=== PATIENT | male | born 1950 | race Caucasian/White ===

== ENCOUNTER 2017-03-21 02:36 | Inpatient (IN) | payer BC ==
[2017-03-21] MEDS: DOXAZOSIN 4 MG TAB PO
[2017-03-21] MEDS ORDERED: NITROGLYCERIN 50 MG/D5W (PMX) 250 ML (02:43)
[2017-03-21 02:59] LABS: AADO2 Arterial 275.1 mmHg (7.0-24.0); Allen Test ACCEPTAB; Arterial Base Excess -7.6 mmol/L (-3.0-3); Arterial Blood Gas Oxygen Sat 99.5 mmHG (95.0-98.0); Arterial COHb 0.5 % (0.0-3.0); Arterial Fraction of Oxyhgb 98.7 % (93.0-99.0); Arterial HCO3 21.6 mmol/L (22.0-26.0); Arterial MetHb 0.3 % (0.0-1.5); Arterial Total Hemglobin 11.3 g/dl (12.0-18.0); Arterial pCO2 62.8 mmhg (35-45); Blood Gas IEPAP 15/5; Blood Gas PS 10; MODE MASK - BIPAP; Site Right Radial
[2017-03-21] MEDS ORDERED: NITROGLYCERIN 50 MG/D5W (PMX) 250 ML IV ×2 (03:00→15:30)
[2017-03-21 03:33] LABS: ADD MAN DIFF? NO
[2017-03-21 03:59] LABS: BASOPHIL # 0.1 10^3/ul (0.0-0.1); BASOPHILS % 0.6 % (0.0-2.0); EOSINOPHILS # 0.7 10^3/ul (0.0-0.5); EOSINOPHILS % 5.2 % (0.0-7.0); HEMATOCRIT 34.1 % (42.0-52.0); HEMOGLOBIN 10.1 g/dl (14.0-18.0); LYMPHOCYTES # 1.6 10^3/ul (0.8-2.9); LYMPHOCYTES % 12.1 % (15.0-51.0); MEAN CORPUSCULAR HEMOGLOBIN 27.6 pg (29.0-33.0); MEAN CORPUSCULAR HGB CONC 29.6 g/dl (32.0-37.0); MEAN CORPUSCULAR VOLUME 93.2 fl (82.0-101.0); MEAN PLATELET VOLUME 10.6 fl (7.4-10.4); MONOCYTE # 1.3 10^3/ul (0.3-0.9); MONOCYTES % 9.6 % (0.0-11.0); NEUTROPHIL # 9.7 10^3/ul (1.6-7.5); PLATELET COUNT 241 10^3/UL (140-415); RED BLOOD COUNT 3.66 10^6/ul (4.70-6.10); RED CELL DISTRIBUTION WIDTH 16.2 % (11.5-14.5)
[2017-03-21 03:59] LABS: WHITE BLOOD COUNT 13.4 10^3/ul (4.8-10.8)
[2017-03-21 04:14] LABS: ANION GAP 29 (8-16); BLOOD UREA NITROGEN 88 mg/dl (7-20); CALCIUM 10.5 mg/dl (8.4-10.2); CARBON DIOXIDE 23 mmol/L (21-31); CHLORIDE 105 mmol/L (97-110); CREATININE 13.17 mg/dl (0.61-1.24); GLUCOSE 122 mg/dl (70-220); POTASSIUM 5.8 mmol/L (3.5-5.1); SODIUM 151 mmol/L (135-144)
[2017-03-21 04:23] LABS: TROPONIN-I 0.025 ng/ml (0.00-0.12)
[2017-03-21 04:35] LABS: AADO2 Arterial 179.9 mmHg (7.0-24.0); Allen Test ACCEPTAB; Arterial Base Excess -5.4 mmol/L (-3.0-3); Arterial Blood Gas Oxygen Sat 98.1 mmHG (95.0-98.0); Arterial COHb 0 % (0.0-3.0); Arterial Fraction of Oxyhgb 97.9 % (93.0-99.0); Arterial HCO3 19.7 mmol/L (22.0-26.0); Arterial MetHb 0.2 % (0.0-1.5); Arterial Total Hemglobin 9.8 g/dl (12.0-18.0); Arterial pCO2 37.1 mmhg (35-45); Blood Gas IEPAP 15/5; Blood Gas PS 10; MODE HOOD; Site Right Radial
[2017-03-21] MEDS ORDERED: ONDANSETRON 4 MG INJ IV ×3 (06:00→15:00)
[2017-03-21] MEDS ORDERED: ACETAMINOPHEN 325 MG TAB PO ×2 (09:00→15:00)
[2017-03-21] MEDS ORDERED: BISACODYL (EC) 5 MG TAB PO ×2 (09:00→15:00)
[2017-03-21] MEDS ORDERED: NACL 0.9% 3 ML SYG IV (09:00)
[2017-03-21] MEDS ORDERED: DOCUSATE SODIUM 100 MG CAP PO ×2 (09:00→15:00)
[2017-03-21] MEDS: LEVOFLOXACIN 500MG/D5W (PMX) 100 ML IV (12:00)
[2017-03-21] MEDS ORDERED: VANCOMYCIN IV PER PHARMACY XX (12:00)
[2017-03-21 13:48] LABS: LACTIC ACID 4.4 mmol/L (0.5-2.0)
[2017-03-21] MEDS: ACETAMINOPHEN 325 MG TAB PO (13:53)
[2017-03-21] MEDS: AZTREONAM 2 GM in SOD CHLORIDE 0.9% 100 ML IVPB (14:00)
[2017-03-21] MEDS ORDERED: AZTREONAM 2 GM in SOD CHLORIDE 0.9% 100 ML IVPB (14:00)
[2017-03-21] MEDS: CIPROFLOXACIN 400MG/D5W 200 ML IVPB (14:00)
[2017-03-21] MEDS: CEFEPIME 2GM/50 ML (PMX) 50 ML IVPB (14:00)
[2017-03-21] MEDS: morphine 2 MG INJ IV ×2 (14:46→19:40)
[2017-03-21] MEDS ORDERED: ZOLPIDEM 5 MG TAB PO (15:00)
[2017-03-21] MEDS ORDERED: LORAZEPAM 0.5 MG TAB PO (15:00)
[2017-03-21] MEDS ORDERED: METOCLOPRAMIDE 10 MG INJ IV (15:00)
[2017-03-21] MEDS: AZITHROMYCIN 500MG/NS (PMX) 250 ML IV (15:22)
[2017-03-21] MEDS: ASPIRIN (EC) 81 MG TAB PO (15:28)
[2017-03-21] MEDS: NICOTINE (14 MG/24 HR) PATCH TRANSDERM (15:29)
[2017-03-21 15:35] LABS: ANION GAP 24 (8-16); BLOOD UREA NITROGEN 85 mg/dl (7-20); CALCIUM 9.3 mg/dl (8.4-10.2); CARBON DIOXIDE 22 mmol/L (21-31); CHLORIDE 103 mmol/L (97-110); CREATINE KINASE 25 IU/L (23-200); CREATININE 11.62 mg/dl (0.61-1.24); GLUCOSE 130 mg/dl (70-220); POTASSIUM 4.6 mmol/L (3.5-5.1); SODIUM 144 mmol/L (135-144)
[2017-03-21 15:50] LABS: CK INDEX 3.6
[2017-03-21 16:04] LABS: TROPONIN-I 0.138 ng/ml (0.00-0.12)
[2017-03-21] MEDS: ALBUTEROL/IPRATROPIUM (NEB) 3 ML AMP HHN ×2 (17:15→20:11)
[2017-03-21] MEDS: OXYCODONE/ACETAMINOPHEN (5/325) TAB PO (18:10)
[2017-03-21] MEDS: CEFTRIAXONE 1 GM/50 ML (PMX) 50 ML IVPB (19:00)
[2017-03-21 19:34] LABS: ANION GAP 20 (8-16); BLOOD UREA NITROGEN 64 mg/dl (7-20); CALCIUM 9.7 mg/dl (8.4-10.2); CARBON DIOXIDE 30 mmol/L (21-31); CHLORIDE 95 mmol/L (97-110); CREATININE 8.89 mg/dl (0.61-1.24); GLUCOSE 118 mg/dl (70-220); POTASSIUM 3.8 mmol/L (3.5-5.1); SODIUM 141 mmol/L (135-144)
[2017-03-21] MEDS: VALSARTAN 160 MG TAB PO (20:40)
[2017-03-21] MEDS: ATORVASTATIN 10 MG TAB PO (20:41)
[2017-03-21] MEDS: FAMOTIDINE 20 MG TAB PO (20:41)
[2017-03-21 21:18] LABS: CREATINE KINASE 21 IU/L (23-200)
[2017-03-21 21:31] LABS: CK INDEX 4.2; TROPONIN-I 0.101 ng/ml (0.00-0.12)
[2017-03-21 21:43] LABS: CK-MB 0.88 ng/ml (0.0-2.4)
[2017-03-22] MEDS: ALBUTEROL/IPRATROPIUM (NEB) 3 ML AMP HHN ×6 (01:00→21:30)
[2017-03-22] MEDS: PANTOPRAZOLE (EC) 40 MG TAB PO (05:36)
[2017-03-22] MEDS: VALSARTAN 160 MG TAB PO ×2 (08:19→21:23)
[2017-03-22] MEDS: MULTIVIT/CA CARB/B CMPLX/FA TAB PO (08:19)
[2017-03-22] MEDS: ASPIRIN (EC) 81 MG TAB PO (08:19)
[2017-03-22] MEDS: NICOTINE (14 MG/24 HR) PATCH TRANSDERM (08:19)
[2017-03-22 08:20] LABS: ADD MAN DIFF? NO
[2017-03-22 08:26] LABS: BASOPHILS % 0.5 % (0.0-2.0); EOSINOPHILS # 0.3 10^3/ul (0.0-0.5); EOSINOPHILS % 8.2 % (0.0-7.0); HEMATOCRIT 28.6 % (42.0-52.0); HEMOGLOBIN 8.5 g/dl (14.0-18.0); LYMPHOCYTES # 0.6 10^3/ul (0.8-2.9); MEAN CORPUSCULAR HEMOGLOBIN 26.9 pg (29.0-33.0); MEAN CORPUSCULAR HGB CONC 29.7 g/dl (32.0-37.0); MEAN CORPUSCULAR VOLUME 90.5 fl (82.0-101.0); MEAN PLATELET VOLUME 10.2 fl (7.4-10.4); MONOCYTE # 0.7 10^3/ul (0.3-0.9); MONOCYTES % 17.6 % (0.0-11.0); NEUTROPHIL # 2.2 10^3/ul (1.6-7.5); NEUTROPHILS % 57.4 % (39.0-77.0); PLATELET COUNT 147 10^3/UL (140-415); RED BLOOD COUNT 3.16 10^6/ul (4.70-6.10); RED CELL DISTRIBUTION WIDTH 16.2 % (11.5-14.5)
[2017-03-22 08:26] LABS: WHITE BLOOD COUNT 3.8 10^3/ul (4.8-10.8)
[2017-03-22 09:09] LABS: ALANINE AMINOTRANSFERASE 31 IU/L (13-69); ALBUMIN 3.6 g/dl (3.3-4.9); ALBUMIN/GLOBULIN RATIO 1.28; ALKALINE PHOSPHATASE 134 IU/L (42-121); ANION GAP 21 (8-16); ASPARTATE AMINO TRANSFERASE 15 IU/L (15-46); BLOOD UREA NITROGEN 71 mg/dl (7-20); CALCIUM 10.1 mg/dl (8.4-10.2); CARBON DIOXIDE 28 mmol/L (21-31); CHLORIDE 98 mmol/L (97-110); CHOL/HDL RATIO 4.6 RATIO; CHOLESTEROL 126 mg/dl (100-200); CREATININE 10.24 mg/dl (0.61-1.24); GLUCOSE 88 mg/dl (70-220); HDL CHOLESTEROL 27 mg/dl (30-78); LDL CHOLESTEROL,CALCULATED 70 mg/dl; MAGNESIUM 2.1 mg/dl (1.7-2.5); POTASSIUM 4.6 mmol/L (3.5-5.1); SODIUM 142 mmol/L (135-144); TOTAL PROTEIN 6.4 g/dl (6.1-8.1); TRIGLYCERIDES 144 mg/dl (0-149)
[2017-03-22] MEDS: CALCIUM ACETATE 667 MG CAP PO ×2 (12:22→17:41)
[2017-03-22] MEDS: AZITHROMYCIN 500MG/NS (PMX) 250 ML IV (12:57)
[2017-03-22] MEDS: CEFTRIAXONE 1 GM/50 ML (PMX) 50 ML IVPB (16:11)
[2017-03-22] MEDS: morphine 2 MG INJ IV (16:16)
[2017-03-22] MEDS: hydrALAzine 20 MG INJ IV (17:41)
[2017-03-22] MEDS: ATORVASTATIN 10 MG TAB PO (21:22)
[2017-03-22] MEDS: DOXAZOSIN 4 MG TAB PO (21:23)
[2017-03-22] MEDS: FAMOTIDINE 20 MG TAB PO (21:23)
[2017-03-23] MEDS: ALBUTEROL/IPRATROPIUM (NEB) 3 ML AMP HHN ×5 (01:00→20:09)
[2017-03-23] MEDS: PANTOPRAZOLE (EC) 40 MG TAB PO (05:32)
[2017-03-23 07:58] LABS: CREATINE KINASE < 20 IU/L (23-200)
[2017-03-23 08:10] LABS: CK-MB 0.59 ng/ml (0.0-2.4); TROPONIN-I 0.047 ng/ml (0.00-0.12)
[2017-03-23 08:12] LABS: ANION GAP 23 (8-16); BLOOD UREA NITROGEN 63 mg/dl (7-20); CALCIUM 10.2 mg/dl (8.4-10.2); CARBON DIOXIDE 25 mmol/L (21-31); CHLORIDE 101 mmol/L (97-110); CREATININE 8.69 mg/dl (0.61-1.24); GLUCOSE 93 mg/dl (70-220); POTASSIUM 4.8 mmol/L (3.5-5.1); SODIUM 144 mmol/L (135-144)
[2017-03-23] MEDS: CALCIUM ACETATE 667 MG CAP PO ×3 (08:51→18:28)
[2017-03-23] MEDS: MULTIVIT/CA CARB/B CMPLX/FA TAB PO (08:51)
[2017-03-23] MEDS: ASPIRIN (EC) 81 MG TAB PO (08:52)
[2017-03-23] MEDS: VALSARTAN 160 MG TAB PO ×2 (08:52→22:50)
[2017-03-23] MEDS: NICOTINE (14 MG/24 HR) PATCH TRANSDERM (08:53)
[2017-03-23] MEDS: REGADENOSON 0.4 MG/5 ML SYG (10:57)
[2017-03-23] MEDS: AZITHROMYCIN 500MG/NS (PMX) 250 ML IV (14:29)
[2017-03-23] MEDS: CEFTRIAXONE 1 GM/50 ML (PMX) 50 ML IVPB (18:28)
[2017-03-23] MEDS: DOXAZOSIN 4 MG TAB PO (21:00)
[2017-03-23] MEDS: ATORVASTATIN 10 MG TAB PO (22:50)
[2017-03-23] MEDS: FAMOTIDINE 20 MG TAB PO (22:50)
[2017-03-24] MEDS: ALBUTEROL/IPRATROPIUM (NEB) 3 ML AMP HHN ×5 (01:00→17:43)
[2017-03-24] MEDS: VALSARTAN 160 MG TAB PO (04:46)
[2017-03-24] MEDS: PANTOPRAZOLE (EC) 40 MG TAB PO (06:00)
[2017-03-24] MEDS: MULTIVIT/CA CARB/B CMPLX/FA TAB PO (10:27)
[2017-03-24] MEDS: ASPIRIN (EC) 81 MG TAB PO (10:27)
[2017-03-24] MEDS: NICOTINE (14 MG/24 HR) PATCH TRANSDERM (10:28)
[2017-03-24] MEDS: CALCIUM ACETATE 667 MG CAP PO ×3 (10:28→18:05)
[2017-03-24] MEDS: AZITHROMYCIN 500MG/NS (PMX) 250 ML IV (12:38)
[2017-03-24] MEDS: HYDROCODONE/APAP (5/325) TAB PO (14:18)
[2017-03-24] MEDS: CEFTRIAXONE 1 GM/50 ML (PMX) 50 ML IVPB (14:20)
[2017-03-24] MEDS: OXYCODONE/ACETAMINOPHEN (5/325) TAB PO (15:59)
== END 2017-03-24 18:38 | disposition home or self-care (01) | DRG 193 ==
LOC: E/R 02:36 → MS4 05:55
PROC: 5A09357 Assistance with Respiratory Ventilation, Less than 24 Consecutive Hours, Continuous Positive Airway Pressure (ICD-10-PCS; principal; 2017-03-21)
PROC: 4A133R1 Monitoring of Arterial Saturation, Peripheral, Percutaneous Approach (ICD-10-PCS; 2017-03-21)
PROC: 5A1D70Z Performance of Urinary Filtration, Intermittent, Less than 6 Hours Per Day (ICD-10-PCS; 2017-03-22)
DX: J18.9 Pneumonia, unspecified organism (principal); I50.23 Acute on chronic systolic (congestive) heart failure; E87.0 Hyperosmolality and hypernatremia; N18.6 End stage renal disease; I42.9 Cardiomyopathy, unspecified; J44.0 Chronic obstructive pulmonary disease with (acute) lower respiratory infection; I13.2 Hypertensive heart and chronic kidney disease with heart failure and with stage 5 chronic kidney disease, or end stage renal disease; E87.2 Acidosis; I16.1 Hypertensive emergency; Z99.2 Dependence on renal dialysis; E87.5 Hyperkalemia; E78.00 Pure hypercholesterolemia, unspecified; F17.210 Nicotine dependence, cigarettes, uncomplicated; Z91.15 Patient's noncompliance with renal dialysis; R74.8 Abnormal levels of other serum enzymes; D63.1 Anemia in chronic kidney disease
CPT/HCPCS: 36415; 36600; 71010; 78452; 80048; 80053; 80061; 82550; 82553; 82803; 82962; 83605; 83735; 84100; 84443; 84484; 85025; 87040; 87400; 90935; 93005; 93017; 93306; 94640; 94660; 96365; 96366; 96375; 99291-25

== ENCOUNTER 2017-06-10 15:41 | Inpatient (IN) | payer BC ==
[2017-06-10] MEDS: SOD CHLORIDE 0.9% 500 ML IV (19:46)
[2017-06-10] MEDS: ONDANSETRON 4 MG INJ IV (19:46)
[2017-06-10 20:03] LABS: ADD MAN DIFF? NO
[2017-06-10 20:06] LABS: WHITE BLOOD COUNT 5.4 10^3/ul (4.8-10.8)
[2017-06-10 20:06] LABS: BASOPHILS % 0.6 % (0.0-2.0); EOSINOPHILS # 0.2 10^3/ul (0.0-0.5); EOSINOPHILS % 2.8 % (0.0-7.0); HEMATOCRIT 29.9 % (42.0-52.0); HEMOGLOBIN 9.5 g/dl (14.0-18.0); LYMPHOCYTES # 0.7 10^3/ul (0.8-2.9); LYMPHOCYTES % 13.5 % (15.0-51.0); MEAN CORPUSCULAR HEMOGLOBIN 26.6 pg (29.0-33.0); MEAN CORPUSCULAR HGB CONC 31.8 g/dl (32.0-37.0); MEAN CORPUSCULAR VOLUME 83.8 fl (82.0-101.0); MEAN PLATELET VOLUME 9.8 fl (7.4-10.4); MONOCYTE # 0.7 10^3/ul (0.3-0.9); MONOCYTES % 12.4 % (0.0-11.0); NEUTROPHIL # 3.8 10^3/ul (1.6-7.5); NEUTROPHILS % 70.3 % (39.0-77.0); PLATELET COUNT 211 10^3/UL (140-415); RED BLOOD COUNT 3.57 10^6/ul (4.70-6.10); RED CELL DISTRIBUTION WIDTH 15.5 % (11.5-14.5)
[2017-06-10 20:35] LABS: ALANINE AMINOTRANSFERASE 15 IU/L (13-69); ALBUMIN 4.1 g/dl (3.3-4.9); ALBUMIN/GLOBULIN RATIO 1.46; ALKALINE PHOSPHATASE 161 IU/L (42-121); ANION GAP 23 (8-16); ASPARTATE AMINO TRANSFERASE 10 IU/L (15-46); BLOOD UREA NITROGEN 66 mg/dl (7-20); CARBON DIOXIDE 25 mmol/L (21-31); CHLORIDE 103 mmol/L (97-110); CREATININE 9.38 mg/dl (0.61-1.24); GLUCOSE 103 mg/dl (70-220); POTASSIUM 3.7 mmol/L (3.5-5.1); SODIUM 147 mmol/L (135-144); TOTAL PROTEIN 6.9 g/dl (6.1-8.1)
[2017-06-10 20:39] LABS: LACTIC ACID 1.6 mmol/L (0.5-2.0)
[2017-06-10 20:46] LABS: TROPONIN-I < 0.012 ng/ml (0.00-0.12)
[2017-06-10] MEDS ORDERED: LABETALOL HCL 20MG INJ IV (22:00)
[2017-06-10] MEDS: LABETALOL HCL 20MG INJ IV (22:02)
[2017-06-10 22:56] LABS: ADD UMIC YES; UR ASCORBIC ACID NEGATIVE (NEGATIVE); UR BILIRUBIN (Dip) NEGATIVE (NEGATIVE); UR BLOOD (Dip) NEGATIVE (NEGATIVE); UR CLARITY CLEAR (CLEAR); UR COLOR STRAW (YELLOW); UR GLUCOSE (Dip) 2+ mg/dL (NEGATIVE); UR KETONES (Dip) NEGATIVE (NEGATIVE); UR LEUKOCYTE ESTERASE (Dip) NEGATIVE Leu/ul (NEGATIVE); UR NITRITE (Dip) NEGATIVE (NEGATIVE); UR RBC 3 /HPF (0-5); UR SPECIFIC GRAVITY (Dip) 1.007 (1.003-1.030); UR TOTAL PROTEIN (Dip) 3+ mg/dl (NEGATIVE); UR UROBILINOGEN (Dip) NEGATIVE (NEGATIVE); UR WBC 4 /HPF (0-5)
[2017-06-10] MEDS: hydrALAzine 20 MG INJ IV (22:56)
[2017-06-10] MEDS: LIDOCAINE/MYLANTA 40 ML BTL PO (23:41)
[2017-06-11] MEDS ORDERED: DOCUSATE SODIUM 100 MG CAP PO
[2017-06-11] MEDS ORDERED: BISACODYL (EC) 5 MG TAB PO
[2017-06-11] MEDS ORDERED: ONDANSETRON 4 MG INJ IV
[2017-06-11] MEDS ORDERED: SEVELAMER CARBONATE 0.8 GM PKT PO (00:30)
[2017-06-11] MEDS: NIFEdipine (XL) 90 MG TAB PO ×2 (00:39→09:35)
[2017-06-11] MEDS: VALSARTAN 160 MG TAB PO ×3 (00:39→20:28)
[2017-06-11] MEDS: ASPIRIN 81 MG TAB PO ×2 (00:51→09:31)
[2017-06-11] MEDS: ZOLPIDEM 5 MG TAB PO (00:51)
[2017-06-11 00:54] LABS: CREATINE KINASE 27 IU/L (23-200)
[2017-06-11 01:06] LABS: TROPONIN-I 0.028 ng/ml (0.00-0.12)
[2017-06-11 01:18] LABS: CK-MB 0.82 ng/ml (0.0-2.4)
[2017-06-11 02:01] LABS: AMPHETAMINE/METHAMPHETAMINE Negative (NEGATIVE); BARBITURATES Negative (NEGATIVE); BENZODIAZEPINES Negative (NEGATIVE); CANNABINOIDS Negative (NEGATIVE); COCAINE Negative (NEGATIVE); OPIATES Negative (NEGATIVE)
[2017-06-11] MEDS: LORAZEPAM 0.5 MG TAB PO ×2 (03:30→17:00)
[2017-06-11] MEDS: morphine 2 MG INJ IV ×2 (06:38→20:26)
[2017-06-11 07:33] LABS: ADD MAN DIFF? NO
[2017-06-11] MEDS: CALCIUM ACETATE 667 MG CAP PO ×3 (07:43→16:56)
[2017-06-11 07:47] LABS: WHITE BLOOD COUNT 5.1 10^3/ul (4.8-10.8)
[2017-06-11 07:47] LABS: BASOPHILS % 0.4 % (0.0-2.0); EOSINOPHILS # 0.2 10^3/ul (0.0-0.5); EOSINOPHILS % 3.2 % (0.0-7.0); HEMATOCRIT 28.3 % (42.0-52.0); HEMOGLOBIN 8.8 g/dl (14.0-18.0); LYMPHOCYTES # 0.7 10^3/ul (0.8-2.9); LYMPHOCYTES % 14.2 % (15.0-51.0); MEAN CORPUSCULAR HEMOGLOBIN 26.2 pg (29.0-33.0); MEAN CORPUSCULAR HGB CONC 31.1 g/dl (32.0-37.0); MEAN CORPUSCULAR VOLUME 84.2 fl (82.0-101.0); MEAN PLATELET VOLUME 10.8 fl (7.4-10.4); MONOCYTE # 0.6 10^3/ul (0.3-0.9); MONOCYTES % 11.8 % (0.0-11.0); NEUTROPHIL # 3.6 10^3/ul (1.6-7.5); NEUTROPHILS % 70.2 % (39.0-77.0); PLATELET COUNT 194 10^3/UL (140-415); RED BLOOD COUNT 3.36 10^6/ul (4.70-6.10); RED CELL DISTRIBUTION WIDTH 15.7 % (11.5-14.5)
[2017-06-11 07:59] LABS: CREATINE KINASE 47 IU/L (23-200)
[2017-06-11 08:02] LABS: ALANINE AMINOTRANSFERASE 16 IU/L (13-69); ALBUMIN 3.7 g/dl (3.3-4.9); ALKALINE PHOSPHATASE 140 IU/L (42-121); ANION GAP 25 (8-16); ASPARTATE AMINO TRANSFERASE 12 IU/L (15-46); BLOOD UREA NITROGEN 73 mg/dl (7-20); CALCIUM 10.2 mg/dl (8.4-10.2); CARBON DIOXIDE 22 mmol/L (21-31); CHLORIDE 104 mmol/L (97-110); CREATININE 9.83 mg/dl (0.61-1.24); GLUCOSE 101 mg/dl (70-220); MAGNESIUM 2.4 mg/dl (1.7-2.5); POTASSIUM 4.5 mmol/L (3.5-5.1); SODIUM 146 mmol/L (135-144)
[2017-06-11 08:12] LABS: CK INDEX 5.7
[2017-06-11 08:32] LABS: THYROID STIMULATING HORMONE 0.655 MIU/L (0.465-4.680)
[2017-06-11 08:37] LABS: CK-MB 2.66 ng/ml (0.0-2.4)
[2017-06-11] MEDS ORDERED: NIFEdipine (XL) 90 MG TAB PO (09:00)
[2017-06-11] MEDS: MINOXIDIL 2.5 MG TAB PO (09:31)
[2017-06-11] MEDS: CALCIUM CARBONATE 500 MG CHEW TAB PO ×4 (09:32→20:28)
[2017-06-11] MEDS: FAMOTIDINE 20 MG TAB PO (09:38)
[2017-06-11] MEDS: DIPHENHYDRAMINE 50 MG INJ IM (10:51)
[2017-06-11] MEDS: CLOPIDOGREL 75 MG TAB PO (10:52)
[2017-06-11] MEDS: ISOSORBIDE DINITRATE 20 MG TAB PO ×2 (12:40→20:28)
[2017-06-11] MEDS: HEPARIN 5,000 UNIT/0.5 ML VIAL SC ×2 (14:59→21:53)
[2017-06-11 16:20] LABS: CREATINE KINASE 199 IU/L (23-200)
[2017-06-11 16:32] LABS: CK INDEX 1.8
[2017-06-11 16:33] LABS: CK-MB 3.67 ng/ml (0.0-2.4)
[2017-06-11] MEDS: EPOETIN 10000 UNITS/1 ML INJ (ESRD) SC (16:51)
[2017-06-11 20:19] LABS: HEPATITIS B SURFACE ANTIGEN NEGATIVE (NEGATIVE)
[2017-06-11] MEDS: DOXAZOSIN 4 MG TAB PO (20:27)
[2017-06-11] MEDS: ATORVASTATIN 10 MG TAB PO (20:28)
[2017-06-12] MEDS: HYDROCODONE/APAP (5/325) TAB PO ×2 (00:10→15:50)
[2017-06-12] MEDS: ISOSORBIDE DINITRATE 20 MG TAB PO (02:29)
[2017-06-12] MEDS: VALSARTAN 160 MG TAB PO (02:29)
[2017-06-12] MEDS: DOXAZOSIN 4 MG TAB PO (02:30)
[2017-06-12] MEDS: ATORVASTATIN 10 MG TAB PO (02:30)
[2017-06-12] MEDS: HEPARIN 5,000 UNIT/0.5 ML VIAL SC ×4 (06:00→21:25)
[2017-06-12 07:45] LABS: ADD MAN DIFF? NO
[2017-06-12 07:55] LABS: ABNORMAL IP MESSAGE 1; BASOPHILS % 0.5 % (0.0-2.0); EOSINOPHILS # 0.1 10^3/ul (0.0-0.5); EOSINOPHILS % 2.7 % (0.0-7.0); HEMATOCRIT 23.9 % (42.0-52.0); HEMOGLOBIN 7.6 g/dl (14.0-18.0); LYMPHOCYTES # 0.5 10^3/ul (0.8-2.9); LYMPHOCYTES % 11.9 % (15.0-51.0); MEAN CORPUSCULAR HEMOGLOBIN 26.3 pg (29.0-33.0); MEAN CORPUSCULAR HGB CONC 31.8 g/dl (32.0-37.0); MEAN CORPUSCULAR VOLUME 82.7 fl (82.0-101.0); MEAN PLATELET VOLUME 10.7 fl (7.4-10.4); MONOCYTE # 0.4 10^3/ul (0.3-0.9); MONOCYTES % 9.5 % (0.0-11.0); NEUTROPHIL # 3.1 10^3/ul (1.6-7.5); NEUTROPHILS % 75.2 % (39.0-77.0); PLATELET COUNT 164 10^3/UL (140-415); POSITIVE DIFF @See below; RED BLOOD COUNT 2.89 10^6/ul (4.70-6.10); RED CELL DISTRIBUTION WIDTH 15.9 % (11.5-14.5)
[2017-06-12 07:55] LABS: WHITE BLOOD COUNT 4.1 10^3/ul (4.8-10.8)
[2017-06-12 08:09] LABS: CREATINE KINASE 93 IU/L (23-200)
[2017-06-12 08:10] LABS: IRON 51 ug/dl (35-150)
[2017-06-12 08:12] LABS: INR 1.35; PROTIME 16.9 Sec (11.9-14.9); PT RATIO 1.3
[2017-06-12 08:17] LABS: ALANINE AMINOTRANSFERASE 20 IU/L (13-69); ALBUMIN 3.5 g/dl (3.3-4.9); ALBUMIN/GLOBULIN RATIO 1.25; ALKALINE PHOSPHATASE 134 IU/L (42-121); ANION GAP 19 (8-16); ASPARTATE AMINO TRANSFERASE 14 IU/L (15-46); BLOOD UREA NITROGEN 43 mg/dl (7-20); CALCIUM 9.5 mg/dl (8.4-10.2); CARBON DIOXIDE 25 mmol/L (21-31); CHLORIDE 99 mmol/L (97-110); CHOL/HDL RATIO 2.9 RATIO; CHOLESTEROL 82 mg/dl (100-200); CREATININE 6.78 mg/dl (0.61-1.24); GLUCOSE 85 mg/dl (70-220); HDL CHOLESTEROL 28 mg/dl (30-78); LDL CHOLESTEROL,CALCULATED 25 mg/dl; MAGNESIUM 2.1 mg/dl (1.7-2.5); POTASSIUM 4.1 mmol/L (3.5-5.1); SODIUM 139 mmol/L (135-144); TOTAL PROTEIN 6.3 g/dl (6.1-8.1); TRIGLYCERIDES 144 mg/dl (0-149)
[2017-06-12 08:18] LABS: CK INDEX 1.5
[2017-06-12 08:19] LABS: % IRON SATURATION 24 % SAT (22-52); CK-MB 1.35 ng/ml (0.0-2.4); TOTAL IRON BINDING CAPACITY 216 ug/dl (241-421)
[2017-06-12 08:27] LABS: FREE T4 (FREE THYROXINE) 1.07 ng/dl (0.78-2.44)
[2017-06-12] MEDS ORDERED: LABETALOL HCL 20MG INJ IV (08:30)
[2017-06-12 08:40] LABS: PHOSPHORUS 4.9 mg/dl (2.5-4.9)
[2017-06-12 09:03] LABS: THYROID STIMULATING HORMONE 0.926 MIU/L (0.465-4.680)
[2017-06-12] MEDS: ASPIRIN 81 MG TAB PO (09:05)
[2017-06-12] MEDS: FAMOTIDINE 20 MG TAB PO (09:06)
[2017-06-12] MEDS: NIFEdipine (XL) 90 MG TAB PO (09:06)
[2017-06-12] MEDS: CALCIUM ACETATE 667 MG CAP PO ×3 (09:06→17:50)
[2017-06-12] MEDS: MINOXIDIL 2.5 MG TAB PO (09:07)
[2017-06-12] MEDS: morphine 2 MG INJ IV (12:07)
[2017-06-12 13:26] LABS: IMMEDIATE SPIN CROSSMATCH 1 2
[2017-06-12] MEDS: CALCIUM CARBONATE 500 MG CHEW TAB PO ×4 (15:50→21:12)
[2017-06-12] MEDS ORDERED: NICOTINE POLACRILEX 2 MG GUM BUCCAL (20:30)
[2017-06-12] MEDS: NICOTINE (21 MG/24 HR) PATCH TRANSDERM (21:12)
[2017-06-13] MEDS: HEPARIN 5,000 UNIT/0.5 ML VIAL SC ×2 (05:56→13:26)
[2017-06-13 07:27] LABS: ADD MAN DIFF? NO
[2017-06-13 07:41] LABS: ABNORMAL IP MESSAGE 1; BASOPHILS % 0.2 % (0.0-2.0); EOSINOPHILS # 0.1 10^3/ul (0.0-0.5); EOSINOPHILS % 2.4 % (0.0-7.0); HEMATOCRIT 34.8 % (42.0-52.0); HEMOGLOBIN 11.1 g/dl (14.0-18.0); LYMPHOCYTES # 0.5 10^3/ul (0.8-2.9); LYMPHOCYTES % 11.1 % (15.0-51.0); MEAN CORPUSCULAR HEMOGLOBIN 26.9 pg (29.0-33.0); MEAN CORPUSCULAR HGB CONC 31.9 g/dl (32.0-37.0); MEAN CORPUSCULAR VOLUME 84.5 fl (82.0-101.0); MEAN PLATELET VOLUME 10.2 fl (7.4-10.4); MONOCYTE # 0.5 10^3/ul (0.3-0.9); MONOCYTES % 11.8 % (0.0-11.0); NEUTROPHIL # 3.4 10^3/ul (1.6-7.5); NEUTROPHILS % 74.3 % (39.0-77.0); PLATELET COUNT 177 10^3/UL (140-415); POSITIVE DIFF @See below; RED BLOOD COUNT 4.12 10^6/ul (4.70-6.10); RED CELL DISTRIBUTION WIDTH 14.9 % (11.5-14.5)
[2017-06-13 07:41] LABS: WHITE BLOOD COUNT 4.5 10^3/ul (4.8-10.8)
[2017-06-13] MEDS: CALCIUM ACETATE 667 MG CAP PO ×3 (07:55→16:55)
[2017-06-13 07:59] LABS: INR 1.25; PROTIME 15.9 Sec (11.9-14.9); PT RATIO 1.2
[2017-06-13] MEDS: VALSARTAN 160 MG TAB PO ×2 (08:00→21:49)
[2017-06-13] MEDS: CALCIUM CARBONATE 500 MG CHEW TAB PO ×4 (08:01→21:49)
[2017-06-13] MEDS: ISOSORBIDE DINITRATE 20 MG TAB PO ×3 (08:01→21:59)
[2017-06-13] MEDS: MINOXIDIL 2.5 MG TAB PO (08:01)
[2017-06-13] MEDS: FAMOTIDINE 20 MG TAB PO (08:01)
[2017-06-13] MEDS: NIFEdipine (XL) 90 MG TAB PO (08:01)
[2017-06-13 08:03] LABS: CREATINE KINASE 74 IU/L (23-200)
[2017-06-13 08:14] LABS: CK INDEX 0.8
[2017-06-13 08:15] LABS: TROPONIN-I 0.852 ng/ml (0.00-0.12)
[2017-06-13 08:44] LABS: IRON 43 ug/dl (35-150)
[2017-06-13 09:00] LABS: % IRON SATURATION 19 % SAT (22-52); TOTAL IRON BINDING CAPACITY 223 ug/dl (241-421)
[2017-06-13] MEDS: NICOTINE (21 MG/24 HR) PATCH TRANSDERM (09:21)
[2017-06-13] MEDS: ASPIRIN 81 MG TAB PO (09:21)
[2017-06-13 10:26] LABS: ALANINE AMINOTRANSFERASE 19 IU/L (13-69); ALBUMIN 4.1 g/dl (3.3-4.9); ALBUMIN/GLOBULIN RATIO 1.51; ALKALINE PHOSPHATASE 154 IU/L (42-121); ANION GAP 20 (8-16); ASPARTATE AMINO TRANSFERASE 18 IU/L (15-46); BLOOD UREA NITROGEN 37 mg/dl (7-20); CARBON DIOXIDE 26 mmol/L (21-31); CHLORIDE 99 mmol/L (97-110); CREATININE 6.11 mg/dl (0.61-1.24); GLUCOSE 89 mg/dl (70-220); MAGNESIUM 2.1 mg/dl (1.7-2.5); POTASSIUM 3.7 mmol/L (3.5-5.1); SODIUM 141 mmol/L (135-144); TOTAL PROTEIN 6.8 g/dl (6.1-8.1)
[2017-06-13] MEDS: EPOETIN 10000 UNITS/1 ML INJ (ESRD) SC (16:49)
[2017-06-13] MEDS ORDERED: FENTAnyl 50 MCG/ML VIAL (17:02)
[2017-06-13] MEDS ORDERED: MIDAZOLAM 1 MG/ML 2 ML INJ (17:02)
[2017-06-13] MEDS ORDERED: HEPARIN 1000 UNITS/NS (A-LINE) 1,000 ML (17:26)
[2017-06-13] MEDS ORDERED: IODIXANOL LOCM 100 ML BTL ×3 (17:26→18:35)
[2017-06-13] MEDS ORDERED: IOHEXOL 350MG/ML 50 ML BTL (17:26)
[2017-06-13] MEDS ORDERED: BIVALIRUDIN 250MG /NS 50 ML 50 ML IVPB (17:26)
[2017-06-13] MEDS ORDERED: CLOPIDOGREL 300 MG TAB (17:28)
[2017-06-13] MEDS ORDERED: VERAPAMIL 5 MG INJ (17:47)
[2017-06-13] MEDS ORDERED: NITROGLYCERIN (IC) 100 MCG/ML INJ (17:47)
[2017-06-13] MEDS: SOD CHLORIDE 0.9% 1,000 ML IV (18:40)
[2017-06-13] MEDS ORDERED: morphine 2 MG INJ IV (19:00)
[2017-06-13] MEDS ORDERED: OXYCODONE/ACETAMINOPHEN (5/325) TAB PO ×2 (19:00)
[2017-06-13] MEDS ORDERED: ACETAMINOPHEN 325 MG TAB PO (19:00)
[2017-06-13] MEDS: ATORVASTATIN 10 MG TAB PO (21:49)
[2017-06-13] MEDS: ACETAMINOPHEN 325 MG TAB PO (21:50)
[2017-06-13] MEDS: ZOLPIDEM 5 MG TAB PO (21:59)
[2017-06-13] MEDS: DOXAZOSIN 4 MG TAB PO (21:59)
[2017-06-14 07:14] LABS: ADD MAN DIFF? NO
[2017-06-14 07:15] LABS: ABNORMAL IP MESSAGE 1; BASOPHILS % 0.3 % (0.0-2.0); EOSINOPHILS # 0.1 10^3/ul (0.0-0.5); EOSINOPHILS % 2.3 % (0.0-7.0); HEMATOCRIT 30.8 % (42.0-52.0); HEMOGLOBIN 9.8 g/dl (14.0-18.0); LYMPHOCYTES # 0.4 10^3/ul (0.8-2.9); LYMPHOCYTES % 10.5 % (15.0-51.0); MEAN CORPUSCULAR HEMOGLOBIN 26.9 pg (29.0-33.0); MEAN CORPUSCULAR HGB CONC 31.8 g/dl (32.0-37.0); MEAN CORPUSCULAR VOLUME 84.6 fl (82.0-101.0); MEAN PLATELET VOLUME 10.3 fl (7.4-10.4); MONOCYTE # 0.4 10^3/ul (0.3-0.9); MONOCYTES % 10.5 % (0.0-11.0); NEUTROPHIL # 3.1 10^3/ul (1.6-7.5); NEUTROPHILS % 76.1 % (39.0-77.0); PLATELET COUNT 179 10^3/UL (140-415); POSITIVE DIFF @See below; RED BLOOD COUNT 3.64 10^6/ul (4.70-6.10); RED CELL DISTRIBUTION WIDTH 15.2 % (11.5-14.5)
[2017-06-14 07:29] LABS: CREATINE KINASE 58 IU/L (23-200)
[2017-06-14 07:33] LABS: ALANINE AMINOTRANSFERASE 20 IU/L (13-69); ALBUMIN 3.4 g/dl (3.3-4.9); ALBUMIN/GLOBULIN RATIO 1.25; ALKALINE PHOSPHATASE 133 IU/L (42-121); ANION GAP 20 (8-16); ASPARTATE AMINO TRANSFERASE 11 IU/L (15-46); BLOOD UREA NITROGEN 52 mg/dl (7-20); CALCIUM 9.4 mg/dl (8.4-10.2); CARBON DIOXIDE 27 mmol/L (21-31); CHLORIDE 99 mmol/L (97-110); GLUCOSE 129 mg/dl (70-220); MAGNESIUM 2.1 mg/dl (1.7-2.5); POTASSIUM 3.8 mmol/L (3.5-5.1); SODIUM 142 mmol/L (135-144); TOTAL PROTEIN 6.1 g/dl (6.1-8.1)
[2017-06-14 07:40] LABS: CK INDEX 1.5
[2017-06-14 07:46] LABS: CK-MB 0.85 ng/ml (0.0-2.4)
[2017-06-14 08:46] LABS: PHOSPHORUS 7.1 mg/dl (2.5-4.9)
[2017-06-14] MEDS: MINOXIDIL 2.5 MG TAB PO (09:00)
[2017-06-14] MEDS: CALCIUM ACETATE 667 MG CAP PO ×3 (12:11→17:04)
[2017-06-14] MEDS: ASPIRIN 81 MG TAB PO (12:12)
[2017-06-14] MEDS: CLOPIDOGREL 75 MG TAB PO (12:12)
[2017-06-14] MEDS: ISOSORBIDE DINITRATE 20 MG TAB PO ×3 (12:12→21:21)
[2017-06-14] MEDS: FAMOTIDINE 20 MG TAB PO (12:12)
[2017-06-14] MEDS: NICOTINE (21 MG/24 HR) PATCH TRANSDERM (12:14)
[2017-06-14] MEDS: NIFEdipine (XL) 90 MG TAB PO (12:14)
[2017-06-14] MEDS: CALCIUM CARBONATE 500 MG CHEW TAB PO ×4 (12:14→21:22)
[2017-06-14] MEDS: VALSARTAN 160 MG TAB PO ×2 (12:52→21:00)
[2017-06-14] MEDS ORDERED: DIPHENHYDRAMINE 50 MG INJ IV (14:00)
[2017-06-14] MEDS: DIPHENHYDRAMINE 25 MG CAP PO ×2 (14:12→23:40)
[2017-06-14] MEDS: DOXAZOSIN 4 MG TAB PO (21:00)
[2017-06-14] MEDS: ATORVASTATIN 10 MG TAB PO (21:23)
[2017-06-14] MEDS: ZOLPIDEM 5 MG TAB PO (22:45)
[2017-06-15] MEDS: CALCIUM ACETATE 667 MG CAP PO ×2 (08:18→12:35)
[2017-06-15] MEDS: ASPIRIN 81 MG TAB PO (08:18)
[2017-06-15] MEDS: CLOPIDOGREL 75 MG TAB PO (08:18)
[2017-06-15] MEDS: NIFEdipine (XL) 90 MG TAB PO (08:19)
[2017-06-15] MEDS: ISOSORBIDE DINITRATE 20 MG TAB PO (08:20)
[2017-06-15] MEDS: FAMOTIDINE 20 MG TAB PO (08:23)
[2017-06-15] MEDS: CALCIUM CARBONATE 500 MG CHEW TAB PO (08:23)
[2017-06-15] MEDS: NICOTINE (21 MG/24 HR) PATCH TRANSDERM (08:24)
[2017-06-15] MEDS: VALSARTAN 160 MG TAB PO (09:42)
[2017-06-15 10:10] LABS: ADD MAN DIFF? NO
[2017-06-15 10:14] LABS: WHITE BLOOD COUNT 4.8 10^3/ul (4.8-10.8)
[2017-06-15 10:14] LABS: ABNORMAL IP MESSAGE 1; BASOPHILS % 0.2 % (0.0-2.0); EOSINOPHILS # 0.1 10^3/ul (0.0-0.5); EOSINOPHILS % 2.7 % (0.0-7.0); HEMOGLOBIN 9.6 g/dl (14.0-18.0); LYMPHOCYTES # 0.5 10^3/ul (0.8-2.9); LYMPHOCYTES % 11.1 % (15.0-51.0); MEAN CORPUSCULAR HEMOGLOBIN 27.5 pg (29.0-33.0); MEAN PLATELET VOLUME 10.1 fl (7.4-10.4); MONOCYTE # 0.6 10^3/ul (0.3-0.9); MONOCYTES % 12.6 % (0.0-11.0); NEUTROPHIL # 3.5 10^3/ul (1.6-7.5); NEUTROPHILS % 73.2 % (39.0-77.0); NUCLEATED RED BLOOD CELLS% 0.6 /100WBC (0.0-0.0); PLATELET COUNT 176 10^3/UL (140-415); POSITIVE DIFF @See below; RED BLOOD COUNT 3.49 10^6/ul (4.70-6.10); RED CELL DISTRIBUTION WIDTH 15.7 % (11.5-14.5)
[2017-06-15 10:31] LABS: ANION GAP 20 (8-16); BLOOD UREA NITROGEN 48 mg/dl (7-20); CALCIUM 10.4 mg/dl (8.4-10.2); CARBON DIOXIDE 29 mmol/L (21-31); CHLORIDE 99 mmol/L (97-110); CREATININE 7.93 mg/dl (0.61-1.24); GLUCOSE 103 mg/dl (70-220); POTASSIUM 3.9 mmol/L (3.5-5.1); SODIUM 144 mmol/L (135-144)
== END 2017-06-15 12:55 | disposition home or self-care (01) | DRG 246 ==
LOC: E/R 15:41 → TEL 06-11 00:09 → ICU 06-13 20:14
PROC: 027035Z Dilation of Coronary Artery, One Artery with Two Drug-eluting Intraluminal Devices, Percutaneous Approach (ICD-10-PCS; principal; 2017-06-13 16:30)
PROC: 02C03ZZ Extirpation of Matter from Coronary Artery, One Artery, Percutaneous Approach (ICD-10-PCS; 2017-06-13 16:30)
PROC: 4A023N7 Measurement of Cardiac Sampling and Pressure, Left Heart, Percutaneous Approach (ICD-10-PCS; 2017-06-13 16:30)
PROC: B211YZZ Fluoroscopy of Multiple Coronary Arteries using Other Contrast (ICD-10-PCS; 2017-06-13 16:30)
PROC: B215YZZ Fluoroscopy of Left Heart using Other Contrast (ICD-10-PCS; 2017-06-13 16:30)
PROC: 5A1D70Z Performance of Urinary Filtration, Intermittent, Less than 6 Hours Per Day (ICD-10-PCS; 2017-06-13 16:49)
PROC: 5A1D70Z Performance of Urinary Filtration, Intermittent, Less than 6 Hours Per Day (ICD-10-PCS; 2017-06-13 16:49)
DX: I21.4 Non-ST elevation (NSTEMI) myocardial infarction (principal); N18.6 End stage renal disease; I16.1 Hypertensive emergency; I13.2 Hypertensive heart and chronic kidney disease with heart failure and with stage 5 chronic kidney disease, or end stage renal disease; I25.10 Atherosclerotic heart disease of native coronary artery without angina pectoris; I50.9 Heart failure, unspecified; I16.0 Hypertensive urgency; I25.5 Ischemic cardiomyopathy; F17.210 Nicotine dependence, cigarettes, uncomplicated; I73.9 Peripheral vascular disease, unspecified; D63.1 Anemia in chronic kidney disease; E78.00 Pure hypercholesterolemia, unspecified; J44.9 Chronic obstructive pulmonary disease, unspecified; Z85.038 Personal history of other malignant neoplasm of large intestine; Z99.2 Dependence on renal dialysis
CPT/HCPCS: 36415; 36430; 70450; 71045; 80048; 80053; 80061; 80307; 81001; 82550; 82553; 82607; 82728; 82962; 83540; 83605; 83735; 84100; 84439; 84443; 84484; 85025; 85610; 86850; 86900; 86901; 86920; 87081; 87340; 90935; 92920; 93005; 93306; 93458; 93970; 96374; 96375; 97162; 97165; 99291-25; G0378

== ENCOUNTER 2017-07-30 19:27 | Inpatient (IN) | payer BC ==
[2017-07-30] MEDS: ONDANSETRON 4 MG INJ IV (20:22)
[2017-07-30] MEDS: LACTATED RINGER'S 1,000 ML IV (20:22)
[2017-07-30 20:42] LABS: ADD MAN DIFF? NO
[2017-07-30 20:45] LABS: ABNORMAL IP MESSAGE 1; BASOPHILS % 0.2 % (0.0-2.0); EOSINOPHILS # 0.2 10^3/ul (0.0-0.5); EOSINOPHILS % 3.3 % (0.0-7.0); HEMATOCRIT 32.4 % (42.0-52.0); HEMOGLOBIN 10.1 g/dl (14.0-18.0); LYMPHOCYTES # 0.8 10^3/ul (0.8-2.9); LYMPHOCYTES % 13.3 % (15.0-51.0); MEAN CORPUSCULAR HEMOGLOBIN 26.4 pg (29.0-33.0); MEAN CORPUSCULAR HGB CONC 31.2 g/dl (32.0-37.0); MEAN CORPUSCULAR VOLUME 84.8 fl (82.0-101.0); MEAN PLATELET VOLUME 9.7 fl (7.4-10.4); MONOCYTE # 0.7 10^3/ul (0.3-0.9); MONOCYTES % 12.1 % (0.0-11.0); NEUTROPHILS % 70.6 % (39.0-77.0); PLATELET COUNT 122 10^3/UL (140-415); POSITIVE DIFF @See below; RED BLOOD COUNT 3.82 10^6/ul (4.70-6.10); RED CELL DISTRIBUTION WIDTH 18.4 % (11.5-14.5)
[2017-07-30 20:45] LABS: WHITE BLOOD COUNT 5.7 10^3/ul (4.8-10.8)
[2017-07-30 21:02] LABS: ALANINE AMINOTRANSFERASE 22 IU/L (13-69); ALBUMIN 4.5 g/dl (3.3-4.9); ALBUMIN/GLOBULIN RATIO 1.55; ALKALINE PHOSPHATASE 128 IU/L (42-121); ANION GAP 28 (8-16); ASPARTATE AMINO TRANSFERASE 19 IU/L (15-46); BLOOD UREA NITROGEN 115 mg/dl (7-20); CALCIUM 9.6 mg/dl (8.4-10.2); CARBON DIOXIDE 15 mmol/L (21-31); CHLORIDE 111 mmol/L (97-110); GLUCOSE 108 mg/dl (70-220); LIPASE 355 U/L (23-300); SODIUM 149 mmol/L (135-144); TOTAL PROTEIN 7.4 g/dl (6.1-8.1)
[2017-07-30] MEDS: LIDOCAINE/MYLANTA 40 ML BTL PO (21:05)
[2017-07-30] MEDS: ASPIRIN 81 MG TAB PO (21:05)
[2017-07-30 21:10] LABS: CREATININE 13.32 mg/dl (0.61-1.24)
[2017-07-30 21:13] LABS: TROPONIN-I 0.023 ng/ml (0.00-0.12)
[2017-07-30] MEDS ORDERED: ZOLPIDEM 5 MG TAB PO (22:30)
[2017-07-30] MEDS: NA POLYST SULFON 15 GM/60 ML BTL PO (22:30)
[2017-07-30] MEDS ORDERED: ONDANSETRON 4 MG INJ IV (22:30)
[2017-07-30] MEDS ORDERED: ACETAMINOPHEN 325 MG TAB PO (22:30)
[2017-07-31] MEDS: VALSARTAN 160 MG TAB PO ×4 (03:00→20:46)
[2017-07-31 05:01] LABS: ADD MAN DIFF? NO
[2017-07-31 05:09] LABS: ABNORMAL IP MESSAGE 1; BASOPHILS % 0.2 % (0.0-2.0); EOSINOPHILS # 0.2 10^3/ul (0.0-0.5); EOSINOPHILS % 3.3 % (0.0-7.0); LYMPHOCYTES # 0.8 10^3/ul (0.8-2.9); LYMPHOCYTES % 16.9 % (15.0-51.0); MEAN CORPUSCULAR HEMOGLOBIN 26.2 pg (29.0-33.0); MEAN CORPUSCULAR VOLUME 84.3 fl (82.0-101.0); MEAN PLATELET VOLUME 9.6 fl (7.4-10.4); MONOCYTE # 0.6 10^3/ul (0.3-0.9); MONOCYTES % 12.1 % (0.0-11.0); NEUTROPHIL # 3.2 10^3/ul (1.6-7.5); NEUTROPHILS % 66.9 % (39.0-77.0); PLATELET COUNT 98 10^3/UL (140-415); POSITIVE DIFF @See below; RED BLOOD COUNT 3.44 10^6/ul (4.70-6.10); RED CELL DISTRIBUTION WIDTH 18.2 % (11.5-14.5)
[2017-07-31 05:09] LABS: WHITE BLOOD COUNT 4.8 10^3/ul (4.8-10.8)
[2017-07-31 05:29] LABS: LIPASE 515 U/L (23-300)
[2017-07-31] MEDS: SEVELAMER CARBONATE 0.8 GM PKT PO ×4 (07:35→15:57)
[2017-07-31] MEDS: NIFEdipine (XL) 60 MG TAB PO ×2 (07:57→16:27)
[2017-07-31] MEDS: ISOSORBIDE DINITRATE 10 MG TAB PO ×3 (07:57→20:46)
[2017-07-31] MEDS: ASPIRIN 81 MG TAB PO ×2 (08:47→09:41)
[2017-07-31] MEDS: CLOPIDOGREL 75 MG TAB PO ×2 (08:47→15:57)
[2017-07-31 09:19] LABS: ALBUMIN 3.4 g/dl (3.3-4.9); ANION GAP 24 (8-16); CALCIUM 9.5 mg/dl (8.4-10.2); CARBON DIOXIDE 19 mmol/L (21-31); CHLORIDE 112 mmol/L (97-110); GLUCOSE 96 mg/dl (70-220); PHOSPHORUS 9.6 mg/dl (2.5-4.9); POTASSIUM 4.7 mmol/L (3.5-5.1); SODIUM 150 mmol/L (135-144)
[2017-07-31 09:26] LABS: BLOOD UREA NITROGEN 125 mg/dl (7-20); CREATININE 14.18 mg/dl (0.61-1.24)
[2017-07-31] MEDS: EPOETIN 10000 UNITS/1 ML INJ (ESRD) SC (16:01)
[2017-07-31] MEDS: DOXAZOSIN 4 MG TAB PO (18:56)
[2017-07-31] MEDS: hydrALAzine 20 MG INJ IV (18:56)
[2017-07-31] MEDS: MINOXIDIL 2.5 MG TAB PO (20:46)
[2017-07-31] MEDS: ATORVASTATIN 10 MG TAB PO (21:28)
[2017-08-01 05:50] LABS: ABNORMAL IP MESSAGE 1; ADD MAN DIFF? NO; BASOPHILS % 0.2 % (0.0-2.0); EOSINOPHILS # 0.1 10^3/ul (0.0-0.5); EOSINOPHILS % 3.2 % (0.0-7.0); HEMATOCRIT 27.4 % (42.0-52.0); HEMOGLOBIN 8.6 g/dl (14.0-18.0); LYMPHOCYTES # 0.5 10^3/ul (0.8-2.9); LYMPHOCYTES % 10.8 % (15.0-51.0); MEAN CORPUSCULAR HGB CONC 31.4 g/dl (32.0-37.0); MEAN CORPUSCULAR VOLUME 82.8 fl (82.0-101.0); MEAN PLATELET VOLUME 10.6 fl (7.4-10.4); MONOCYTE # 0.6 10^3/ul (0.3-0.9); MONOCYTES % 12.9 % (0.0-11.0); NEUTROPHIL # 3.2 10^3/ul (1.6-7.5); NEUTROPHILS % 72.7 % (39.0-77.0); PLATELET COUNT 113 10^3/UL (140-415); POSITIVE DIFF @See below; RED BLOOD COUNT 3.31 10^6/ul (4.70-6.10)
[2017-08-01 05:50] LABS: WHITE BLOOD COUNT 4.4 10^3/ul (4.8-10.8)
[2017-08-01 06:16] LABS: IRON 38 ug/dl (35-150)
[2017-08-01 06:26] LABS: TOTAL IRON BINDING CAPACITY 205 ug/dl (241-421)
[2017-08-01 06:27] LABS: % IRON SATURATION 19 % SAT (22-52)
[2017-08-01 06:29] LABS: PHOSPHORUS 8.1 mg/dl (2.5-4.9)
[2017-08-01 06:34] LABS: AMYLASE 64 U/L (11-123)
[2017-08-01 06:34] LABS: LIPASE 145 U/L (23-300)
[2017-08-01] MEDS: SEVELAMER CARBONATE 0.8 GM PKT PO ×2 (08:09→12:55)
[2017-08-01] MEDS: ASPIRIN 81 MG TAB PO (08:09)
[2017-08-01] MEDS: MINOXIDIL 2.5 MG TAB PO ×2 (08:09→09:26)
[2017-08-01] MEDS: MEGESTROL 40 MG TAB PO (08:09)
[2017-08-01] MEDS: ISOSORBIDE DINITRATE 10 MG TAB PO ×2 (08:09→12:55)
[2017-08-01] MEDS: VALSARTAN 160 MG TAB PO (09:26)
[2017-08-01] MEDS: NIFEdipine (XL) 60 MG TAB PO (09:26)
[2017-08-01] MEDS: CLOPIDOGREL 75 MG TAB PO (09:27)
[2017-08-01 09:59] LABS: ALANINE AMINOTRANSFERASE 26 IU/L (13-69); ALBUMIN 3.5 g/dl (3.3-4.9); ALKALINE PHOSPHATASE 106 IU/L (42-121); ASPARTATE AMINO TRANSFERASE 14 IU/L (15-46); BILIRUBIN,INDIRECT 0.1 mg/dl (0-1.1); BILIRUBIN,TOTAL 0.1 mg/dl (0.2-1.3); TOTAL PROTEIN 5.9 g/dl (6.1-8.1)
[2017-08-01 10:00] LABS: ANION GAP 20 (8-16); BLOOD UREA NITROGEN 82 mg/dl (7-20); CALCIUM 9.6 mg/dl (8.4-10.2); CARBON DIOXIDE 25 mmol/L (21-31); CHLORIDE 104 mmol/L (97-110); CREATININE 10.59 mg/dl (0.61-1.24); GLUCOSE 96 mg/dl (70-220); POTASSIUM 4.3 mmol/L (3.5-5.1); SODIUM 145 mmol/L (135-144)
[2017-08-01 10:34] LABS: CANCER ANTIGEN 19-9 < 1.4 U/ml (0.0-37.0)
[2017-08-01] MEDS: SOD FERRIC GLUC COMPLX 125 MG in SOD CHLORIDE 0.9% 100 ML IVPB (11:42)
[2017-08-01] MEDS: FAMOTIDINE 20 MG TAB PO (12:56)
[2017-08-01] MEDS ORDERED: SOD FERRIC GLUC COMPLX 125 MG in SOD CHLORIDE 0.9% 100 ML IVPB (17:00)
[2017-08-01] MEDS ORDERED: MINOXIDIL 2.5 MG TAB PO (21:00)
== END 2017-08-01 13:56 | disposition home or self-care (01) | DRG 682 ==
LOC: MS3 23:43 → E/R 19:27
PROC: 5A1D70Z Performance of Urinary Filtration, Intermittent, Less than 6 Hours Per Day (ICD-10-PCS; principal; 2017-07-31)
DX: I12.0 Hypertensive chronic kidney disease with stage 5 chronic kidney disease or end stage renal disease (principal); N18.6 End stage renal disease; K85.90 Acute pancreatitis without necrosis or infection, unspecified; Z91.15 Patient's noncompliance with renal dialysis; E87.70 Fluid overload, unspecified; Z99.2 Dependence on renal dialysis; I25.10 Atherosclerotic heart disease of native coronary artery without angina pectoris; D64.9 Anemia, unspecified
CPT/HCPCS: 36415; 71045; 76700; 80048; 80053; 80069; 80076; 82150; 82378; 82728; 83540; 83690; 84100; 84443; 84484; 85025; 86301; 90935; 93005; 99285-25

== ENCOUNTER 2017-08-11 19:35 | Emergency (ER) | payer SELFPAY, BC | END 2017-08-11 23:35 | disposition left against medical advice (07) | LOC: E/R 19:35 | DX: Z53.21 Procedure and treatment not carried out due to patient leaving prior to being seen by health care provider (principal) ==

== ENCOUNTER 2017-08-12 08:21 | Emergency (ER) | payer BC, OTHER ==
[2017-08-12] MEDS: TETRACAINE 0.5% 4 ML OPH BOTH EYES (10:00)
== END 2017-08-12 10:26 | disposition home or self-care (01) ==
LOC: FTE 08:21
DX: H57.8 Other specified disorders of eye and adnexa (principal); I12.9 Hypertensive chronic kidney disease with stage 1 through stage 4 chronic kidney disease, or unspecified chronic kidney disease; N18.9 Chronic kidney disease, unspecified; F17.210 Nicotine dependence, cigarettes, uncomplicated; Z79.82 Long term (current) use of aspirin; Z85.51 Personal history of malignant neoplasm of bladder; Z98.61 Coronary angioplasty status
CPT/HCPCS: 99282; Z7610

== ENCOUNTER 2017-08-13 08:18 | Inpatient (IN) | payer BC ==
[2017-08-13 09:49] LABS: ADD MAN DIFF? NO
[2017-08-13 09:51] LABS: WHITE BLOOD COUNT 4.9 10^3/ul (4.8-10.8)
[2017-08-13 09:51] LABS: ABNORMAL IP MESSAGE 1; BASOPHILS % 0.2 % (0.0-2.0); EOSINOPHILS # 0.1 10^3/ul (0.0-0.5); EOSINOPHILS % 2.7 % (0.0-7.0); HEMATOCRIT 30.7 % (42.0-52.0); HEMOGLOBIN 9.6 g/dl (14.0-18.0); LYMPHOCYTES # 0.5 10^3/ul (0.8-2.9); LYMPHOCYTES % 10.1 % (15.0-51.0); MEAN CORPUSCULAR HEMOGLOBIN 26.7 pg (29.0-33.0); MEAN CORPUSCULAR HGB CONC 31.3 g/dl (32.0-37.0); MEAN CORPUSCULAR VOLUME 85.3 fl (82.0-101.0); MEAN PLATELET VOLUME 9.8 fl (7.4-10.4); MONOCYTE # 0.4 10^3/ul (0.3-0.9); MONOCYTES % 7.4 % (0.0-11.0); NEUTROPHIL # 3.8 10^3/ul (1.6-7.5); NEUTROPHILS % 79.2 % (39.0-77.0); PLATELET COUNT 149 10^3/UL (140-415); POSITIVE DIFF @See below; RED CELL DISTRIBUTION WIDTH 18.2 % (11.5-14.5)
[2017-08-13] MEDS: ASPIRIN 81 MG TAB PO (09:53)
[2017-08-13 10:12] LABS: ALANINE AMINOTRANSFERASE 19 IU/L (13-69); ALBUMIN 4.1 g/dl (3.3-4.9); ALBUMIN/GLOBULIN RATIO 1.36; ALKALINE PHOSPHATASE 136 IU/L (42-121); ANION GAP 25 (8-16); ASPARTATE AMINO TRANSFERASE 13 IU/L (15-46); BILIRUBIN,INDIRECT 0.1 mg/dl (0-1.1); BILIRUBIN,TOTAL 0.1 mg/dl (0.2-1.3); BLOOD UREA NITROGEN 96 mg/dl (7-20); CALCIUM 9.8 mg/dl (8.4-10.2); CARBON DIOXIDE 22 mmol/L (21-31); CHLORIDE 106 mmol/L (97-110); CREATININE 11.11 mg/dl (0.61-1.24); GLUCOSE 153 mg/dl (70-220); LIPASE 287 U/L (23-300); POTASSIUM 4.2 mmol/L (3.5-5.1); SODIUM 149 mmol/L (135-144); TOTAL PROTEIN 7.1 g/dl (6.1-8.1)
[2017-08-13 10:24] LABS: TROPONIN-I 0.036 ng/ml (0.000-0.120)
[2017-08-13] MEDS ORDERED: NACL 0.9% 3 ML SYG IV (13:00)
[2017-08-13] MEDS ORDERED: MAGNESIUM HYDROXIDE 30ML CUP PO (13:00)
[2017-08-13] MEDS ORDERED: morphine 2 MG INJ IV (13:00)
[2017-08-13] MEDS ORDERED: BISACODYL 10 MG SUPP PR (13:00)
[2017-08-13] MEDS ORDERED: ONDANSETRON 4 MG INJ IV (13:00)
[2017-08-13] MEDS ORDERED: DOCUSATE SODIUM 100 MG CAP PO (13:00)
[2017-08-13] MEDS ORDERED: ACETAMINOPHEN 325 MG TAB PO (13:00)
[2017-08-13] MEDS: HEPARIN 5,000 UNIT/0.5 ML VIAL SC ×2 (15:14→21:04)
[2017-08-13] MEDS: ISOSORBIDE DINITRATE 10 MG TAB PO ×2 (16:07→20:55)
[2017-08-13] MEDS: SEVELAMER CARBONATE 0.8 GM PKT PO (18:10)
[2017-08-13 18:49] LABS: CREATINE KINASE 24 IU/L (23-200)
[2017-08-13 19:01] LABS: CK INDEX 4.4; TROPONIN-I 0.042 ng/ml (0.000-0.120)
[2017-08-13 19:02] LABS: CK-MB 1.05 ng/ml (0.0-2.4)
[2017-08-13] MEDS: VALSARTAN 160 MG TAB PO ×2 (19:14→21:00)
[2017-08-13] MEDS: ATORVASTATIN 10 MG TAB PO (20:55)
[2017-08-13] MEDS: MINOXIDIL 10 MG TAB PO (20:56)
[2017-08-13] MEDS: DOXAZOSIN 4 MG TAB PO (20:56)
[2017-08-13] MEDS ORDERED: MINOXIDIL 2.5 MG TAB PO (21:00)
[2017-08-13] MEDS: MINOXIDIL 2.5 MG TAB PO (21:04)
[2017-08-14] MEDS: hydrALAzine 20 MG INJ IV (00:24)
[2017-08-14] MEDS: NITROGLYCERIN (SL) 0.4 MG TAB SL (00:50)
[2017-08-14 01:14] LABS: CREATINE KINASE 26 IU/L (23-200)
[2017-08-14 01:26] LABS: CK INDEX 4.3; CK-MB 1.12 ng/ml (0.0-2.4); TROPONIN-I 0.054 ng/ml (0.000-0.120)
[2017-08-14] MEDS ORDERED: LORAZEPAM 0.5 MG TAB PO (01:30)
[2017-08-14] MEDS: VALSARTAN 160 MG TAB PO (05:40)
[2017-08-14] MEDS: NIFEdipine (XL) 60 MG TAB PO (05:40)
[2017-08-14] MEDS: MINOXIDIL 10 MG TAB PO (05:41)
[2017-08-14] MEDS: HEPARIN 5,000 UNIT/0.5 ML VIAL SC (05:42)
[2017-08-14 06:07] LABS: ADD MAN DIFF? NO
[2017-08-14 06:10] LABS: WHITE BLOOD COUNT 5.4 10^3/ul (4.8-10.8)
[2017-08-14 06:10] LABS: BASOPHILS % 0.2 % (0.0-2.0); EOSINOPHILS # 0.1 10^3/ul (0.0-0.5); EOSINOPHILS % 2.6 % (0.0-7.0); HEMATOCRIT 28.3 % (42.0-52.0); HEMOGLOBIN 8.7 g/dl (14.0-18.0); LYMPHOCYTES # 0.7 10^3/ul (0.8-2.9); LYMPHOCYTES % 13.3 % (15.0-51.0); MEAN CORPUSCULAR HEMOGLOBIN 26.4 pg (29.0-33.0); MEAN CORPUSCULAR HGB CONC 30.7 g/dl (32.0-37.0); MEAN CORPUSCULAR VOLUME 85.8 fl (82.0-101.0); MEAN PLATELET VOLUME 10.6 fl (7.4-10.4); MONOCYTE # 0.6 10^3/ul (0.3-0.9); MONOCYTES % 10.5 % (0.0-11.0); PLATELET COUNT 128 10^3/UL (140-415); RED CELL DISTRIBUTION WIDTH 18.3 % (11.5-14.5)
[2017-08-14 06:35] LABS: ANION GAP 23 (8-16); BLOOD UREA NITROGEN 114 mg/dl (7-20); CARBON DIOXIDE 19 mmol/L (21-31); CHLORIDE 112 mmol/L (97-110); CREATININE 12.79 mg/dl (0.61-1.24); GLUCOSE 94 mg/dl (70-220); MAGNESIUM 2.1 mg/dl (1.7-2.5); POTASSIUM 4.7 mmol/L (3.5-5.1); SODIUM 149 mmol/L (135-144)
[2017-08-14] MEDS: SEVELAMER CARBONATE 0.8 GM PKT PO ×2 (07:35→11:41)
[2017-08-14] MEDS: ISOSORBIDE DINITRATE 10 MG TAB PO ×2 (09:00→15:17)
[2017-08-14] MEDS ORDERED: FAMOTIDINE 20 MG TAB PO (09:00)
[2017-08-14] MEDS ORDERED: MINOXIDIL 10 MG TAB PO (09:00)
[2017-08-14] MEDS: ASPIRIN 81 MG TAB PO (09:00)
[2017-08-14] MEDS: MEGESTROL 40 MG TAB PO (10:17)
[2017-08-14] MEDS: FERROUS SULFATE (EC) 325 MG TAB PO (10:17)
[2017-08-14] MEDS: FAMOTIDINE 20 MG TAB PO (10:18)
[2017-08-14 12:51] LABS: HEPATITIS B SURFACE ANTIGEN NEGATIVE (NEGATIVE)
[2017-08-14] MEDS: REGADENOSON 0.4 MG/5 ML SYG (13:15)
[2017-08-14] MEDS ORDERED: morphine LIQ (10 MG/5 ML) CUP PO (15:00)
[2017-08-14] MEDS: PANTOPRAZOLE (EC) 40 MG TAB PO (15:17)
[2017-08-14] MEDS: CLOPIDOGREL 75 MG TAB PO (15:17)
== END 2017-08-14 16:30 | disposition home or self-care (01) | DRG 313 ==
LOC: E/R 08:18 → MS3 11:23
PROC: C22G1ZZ Tomographic (Tomo) Nuclear Medicine Imaging of Myocardium using Technetium 99m (Tc-99m) (ICD-10-PCS; principal; 2017-08-14)
PROC: 5A1D70Z Performance of Urinary Filtration, Intermittent, Less than 6 Hours Per Day (ICD-10-PCS; 2017-08-14)
DX: R07.89 Other chest pain (principal); I12.0 Hypertensive chronic kidney disease with stage 5 chronic kidney disease or end stage renal disease; N18.6 End stage renal disease; I42.9 Cardiomyopathy, unspecified; Z99.2 Dependence on renal dialysis; D50.0 Iron deficiency anemia secondary to blood loss (chronic); Z85.038 Personal history of other malignant neoplasm of large intestine; I25.10 Atherosclerotic heart disease of native coronary artery without angina pectoris; I25.2 Old myocardial infarction; Z95.5 Presence of coronary angioplasty implant and graft; E78.5 Hyperlipidemia, unspecified; Z91.19 Patient's noncompliance with other medical treatment and regimen; F17.210 Nicotine dependence, cigarettes, uncomplicated; J44.9 Chronic obstructive pulmonary disease, unspecified
CPT/HCPCS: 36415; 71045; 78452; 80048; 80053; 82550; 82553; 83690; 83735; 84484; 85025; 87081; 87340; 90935; 93005; 93017; 96372; 99285-25